=== PATIENT | female | born 2000 | race Caucasian/White ===

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

== ENCOUNTER 2023-10-28 17:09 | Emergency (ER) | payer BC ==
[~2023-10-28] VITALS: Ht 162.6 cm; Wt 63.0 kg
[~2023-10-28 17:09] MED LIST changes: +HYDR-4383 PO; -HYDR-569 PO; -ONDA4TAB9 PO
[2023-10-28] MEDS ORDERED: haloperidol lactate 5mg/ml inj IM ONE (18:15)
[2023-10-28] MEDS ORDERED: normal saline 1000ml 1,000 ML IV ONE (18:15)
[2023-10-28] MEDS ORDERED: METO10TA3 PO (19:04)
[2023-10-28 19:19] VITALS: BP 126/66; PULSE 80; RESP 20; TEMP 97.9; O2SAT 97
== END 2023-10-28 19:21 | disposition home or self-care (01) ==
LOC: ER 17:10
DX: R11.2 Nausea with vomiting, unspecified (principal)
CPT/HCPCS: 36415; 71045; 87502; 87503; 87811; 96360; 96372; 99284; J1630; J7030